=== PATIENT | female | born 1985 | race African-American/Black ===

== ENCOUNTER 2023-09-14 12:48 | Emergency (ER) | payer OTHER ==
[2023-09-14 13:07] VITALS: BP 129/81; PULSE 53; RESP 16; TEMP 98.6; BMI 30.1
[2023-09-14] MEDS: ACETAMINOPHEN 500 MG TABLET (FP) PO ONE (14:08)
[2023-09-14] MEDS ORDERED: ACETAMINOPHEN 500 MG TABLET (FP) ONE (14:08)
[2023-09-14] MEDS ORDERED: METOCLOPRAMIDE HCL INJECTION 10 MG/2 ML VIAL ONE (15:14)
[2023-09-14] MEDS: METOCLOPRAMIDE HCL INJECTION 10 MG/2 ML VIAL IVPUSH ONE (15:20)
[2023-09-14] MEDS: MAGNESIUM SULF 50% (8.12 MEQ/2 ML-1 GM VIAL) IVPB ONE (15:21)
[2023-09-14] MEDS: SODIUM CHLORIDE 1,000 ML IV STA (15:21)
[2023-09-14] MEDS ORDERED: MAGNESIUM SULFATE IN WATER 2 GM/50 ML IVPB IVPB ONE (15:23)
== END 2023-09-14 17:11 | disposition home or self-care (01) ==
LOC: JERFT 12:48
PROC: 3E033GC Introduction of Other Therapeutic Substance into Peripheral Vein, Percutaneous Approach (ICD-10-PCS; principal; 2023-09-14)
PROC: 3E033GC Introduction of Other Therapeutic Substance into Peripheral Vein, Percutaneous Approach (ICD-10-PCS; 2023-09-14)
PROC: 3E0337Z Introduction of Electrolytic and Water Balance Substance into Peripheral Vein, Percutaneous Approach (ICD-10-PCS; 2023-09-14)
DX: S13.4XXA Sprain of ligaments of cervical spine, initial encounter (principal); R51.9 Headache, unspecified; H53.71 Glare sensitivity; V43.62XA Car passenger injured in collision with other type car in traffic accident, initial encounter; Y92.410 Unspecified street and highway as the place of occurrence of the external cause
CPT/HCPCS: 70450-TC; 72125-TC; 99284-25